=== PATIENT | male | born 1995 | race Two or more races ===

== ENCOUNTER 2021-03-16 16:25 | Inpatient (IN) | payer MEDICAID ==
[~2021-03-16] VITALS: Ht 167.6 cm; Wt 64.6 kg
[2021-03-16] MEDS ORDERED: HALOPERIDOL 5 MG TABLET PO PRN (19:45)
[2021-03-16] MEDS ORDERED: OLAN10TA3 PO (22:10)
[2021-03-16 22:47] LABS: COVID AG,FIA SOURCE NASOPHARYNGEAL
[2021-03-17 00:32] VITALS: BP 120/80
[2021-03-17 07:33] LABS: BASOPHILS % (AUTO) 0.7 % (0.0-2.0); EOSINOPHILS % (AUTO) 13.6 % (1.0-6.0); HEMATOCRIT 39.4 % (41-53); HEMOGLOBIN 13.7 g/dL (13.5-17.5); LYMPHOCYTES # (AUTO) 2.1 K/uL (1.0-4.8); LYMPHOCYTES % (AUTO) 46.6 % (22.0-44.0); MEAN CORPUSCULAR HEMOGLOBIN 32.9 pg (26.0-34.0); MEAN CORPUSCULAR HGB CONC 34.8 G/dL (31.0-37.0); MEAN CORPUSCULAR VOLUME 95 fL (80-100); MONOCYTES # (AUTO) 0.4 K/uL (0.1-1.0); NEUTROPHILS # (AUTO) 1.4 K/uL (1.8-7.7); NEUTROPHILS % (AUTO) 30.1 % (40.0-70.0); PLATELET COUNT (AUTO) 323 K/uL (150-450); RED BLOOD CELL COUNT(AUTO) 4.17 MIL/uL (4.50-5.90)
[2021-03-17] MEDS ORDERED: MAGNESIUM HYDROXIDE SUSPENSION 30 ML UDCUP PO PRN (07:45)
[2021-03-17] MEDS ORDERED: ONDANSETRON HCL 4 MG TABLET PO PRN (07:45)
[2021-03-17] MEDS ORDERED: ACETAMINOPHEN 325 MG TABLET PO PRN (07:45)
[2021-03-17] MEDS ORDERED: ALBUTEROL SULFATE HFA 90 MCG/PUFF 8 GM INHALER IH PRN (07:45)
[2021-03-17] MEDS ORDERED: CloNIDine HCL 0.1 MG TABLET PO PRN (07:45)
[2021-03-17] MEDS ORDERED: GuaiFENesin/D-METHORPHAN [SUGAR-FREE] 200-20MG/10 ML SYRUP UDCUP PO PRN (07:45)
[2021-03-17] MEDS ORDERED: MAG HYDROX/AL HYDROX/SIMETH ES 30 ML SUSPENSION UDCUP PO PRN (07:45)
[2021-03-17] MEDS ORDERED: DOCUSATE SODIUM 100 MG CAPSULE PO PRN (07:45)
[2021-03-17] MEDS ORDERED: LOPERAMIDE HCL 2 MG CAPSULE PO PRN (07:45)
[2021-03-17] MEDS ORDERED: PETROLATUM,WHITE 28 GM JELLY TP PRN (07:45)
[2021-03-17] MEDS ORDERED: IBUPROFEN 400 MG TABLET PO PRN (07:45)
[2021-03-17] MEDS ORDERED: NICOTINE 14 MG/24 HOUR PATCH TD PRN (07:45)
[2021-03-17 07:54] LABS: ALANINE AMINOTRANSFERASE 29 U/L (12-78); ALBUMIN 3.4 g/dL (3.4-5.0); ALKALINE PHOSPHATASE 66 U/L (46-116); ANION GAP 6 mmol/L (8-16); ASPARTATE AMINOTRANSFERASE 23 U/L (15-37); BILIRUBIN,TOTAL 0.3 mg/dL (0.1-1.0); CALCIUM, TOTAL 8.6 mg/dL (8.8-10.5); CARBON DIOXIDE 28 mmol/L (22-29); CHLORIDE 107 mmol/L (98-107); CHOL/HDL RATIO 2.2 (4.2-7.3); CHOLESTEROL 133 mg/dL (131-200); CREATININE 1.08 mg/dL (0.60-1.30); GLOMERULAR FILTR. RATE CALC > 60 mL/min (>60); GLUCOSE,RANDOM 92 mg/dL (70-110); HDL CHOLESTEROL 60 mg/dL (40-60); LDL CHOL (CALC.) 56 mg/dL (0-130); SODIUM SERUM 141 mmol/L (136-145); TOTAL PROTEIN, SERUM 6.1 g/dL (6.4-8.2); TRIGLYCERIDES 85 mg/dL (15-150); UREA NITROGEN, BLOOD 18 mg/dL (7-18)
[2021-03-17 08:20] VITALS: BP 123/85
[2021-03-17 08:32] LABS: FREE T4 (FREE THYROXINE) 1.11 ng/dL (0.76-1.46)
[2021-03-17] MEDS: OLANZapine 5 MG TABLET PO SCH ×2 (09:49→16:13)
[2021-03-17] MEDS: LORazepam 2 MG TABLET PO PRN (16:13)
[2021-03-17 16:15] VITALS: BP 135/71
[2021-03-18 00:37] VITALS: BP 126/69
[2021-03-18] MEDS: OLANZapine 5 MG TABLET PO SCH ×2 (08:06→16:49)
[2021-03-18 08:30] VITALS: BP 128/70
[2021-03-18 16:16] VITALS: BP 138/90
[2021-03-18] MEDS: LORazepam 2 MG TABLET PO PRN (16:50)
[2021-03-18] MEDS: ZOLPIDEM TARTRATE 10 MG TABLET PO PRN (21:07)
[2021-03-19 01:21] VITALS: BP 126/82
[2021-03-19] MEDS: OLANZapine 5 MG TABLET PO SCH ×2 (08:50→16:59)
[2021-03-19 08:53] VITALS: BP 115/66
[2021-03-19] MEDS: LORazepam 2 MG TABLET PO PRN ×2 (11:16→16:59)
[2021-03-19 16:10] VITALS: BP 111/68
[2021-03-19] MEDS: ZOLPIDEM TARTRATE 10 MG TABLET PO PRN (20:59)
[2021-03-20 01:26] VITALS: BP 122/74
[2021-03-20] MEDS: LORazepam 2 MG TABLET PO PRN ×2 (08:14→16:22)
[2021-03-20] MEDS: OLANZapine 5 MG TABLET PO SCH ×2 (08:14→16:22)
[2021-03-20 09:01] VITALS: BP 117/65
[2021-03-20 16:10] VITALS: BP 112/69
[2021-03-20] MEDS: ZOLPIDEM TARTRATE 10 MG TABLET PO PRN (20:30)
[2021-03-21 04:00] VITALS: BP 111/77
[2021-03-21] MEDS: OLANZapine 5 MG TABLET PO SCH ×2 (08:24→16:06)
[2021-03-21 08:48] VITALS: BP 117/65
[2021-03-21 16:05] VITALS: BP 118/61
[2021-03-21] MEDS: ZOLPIDEM TARTRATE 10 MG TABLET PO PRN (20:36)
[2021-03-21] MEDS: LORazepam 2 MG TABLET PO PRN (20:36)
[2021-03-22 05:27] VITALS: BP 105/60
[2021-03-22 08:08] VITALS: BP 113/57
[2021-03-22 08:27] LABS: APPEARANCE,URINE CLEAR (CLEAR); BILIRUBIN,URINE NEGATIVE (NEGATIVE); GLUCOSE, URINE (UA) NEGATIVE (NEGATIVE); KETONES,URINE NEGATIVE (NEGATIVE); LEUKOCYTE ESTERASE ,URINE NEGATIVE (NEGATIVE); NITRATE,URINE NEGATIVE (NEGATIVE); OCCULT BLOOD,URINE NEGATIVE (NEGATIVE); PROTEIN,URINE NEGATIVE (NEGATIVE); UROBILINOGEN,URINE 0.2 mg/dL (<=1.0)
[2021-03-22 08:32] LABS: AMPHET/METH SCREEN,URINE NEGATIVE (NEGATIVE); BARBITURATE SCREEN, URINE NEGATIVE (NEGATIVE); BENZODIAZEPINES SCREEN,URINE NEGATIVE (NEGATIVE); CANNABINOID SCREEN,URINE NEGATIVE (NEGATIVE); COCAINE SCREEN,URINE NEGATIVE (NEGATIVE); METHADONE SCREEN, URINE NEGATIVE (NEGATIVE); OPIATE SCREEN,URINE NEGATIVE (NEGATIVE)
[2021-03-22 08:38] LABS: PHENCYCLIDINE SCREEN,URINE NEGATIVE (NEGATIVE)
[2021-03-22] MEDS: OLANZapine 5 MG TABLET PO SCH (09:04)
[2021-03-22] MEDS: LORazepam 2 MG TABLET PO PRN ×2 (09:08→16:49)
[2021-03-22] MEDS: ARIPiprazole 5 MG TABLET PO SCH ×2 (12:54→16:48)
[2021-03-22 17:51] VITALS: BP 113/60
[2021-03-22] MEDS: ZOLPIDEM TARTRATE 10 MG TABLET PO PRN (20:57)
[2021-03-23 03:29] VITALS: BP 125/65
[2021-03-23 08:09] VITALS: BP_SYST 105; BP_SYST 111; BP_DIAS 62; BP_DIAS 77
[2021-03-23] MEDS: LORazepam 2 MG TABLET PO PRN ×2 (08:33→16:33)
[2021-03-23] MEDS: ARIPiprazole 5 MG TABLET PO SCH ×2 (08:33→16:33)
[2021-03-23] MEDS ORDERED: ARIPiprazole ER SUSPENSION 400 MG PRE-FILLED DUAL CHAMBER SYRINGE IM SCH (09:00)
[2021-03-23 16:16] VITALS: BP 113/63
[2021-03-23] MEDS: ZOLPIDEM TARTRATE 10 MG TABLET PO PRN (21:34)
[2021-03-24 06:18] VITALS: BP 114/69
[2021-03-24 08:03] VITALS: BP 115/75
[2021-03-24] MEDS: ARIPiprazole 5 MG TABLET PO SCH ×2 (08:24→16:54)
[2021-03-24] MEDS: LORazepam 2 MG TABLET PO PRN (13:43)
[2021-03-24 16:07] VITALS: BP 118/69
[2021-03-24] MEDS: ZOLPIDEM TARTRATE 10 MG TABLET PO PRN (20:27)
[2021-03-25 04:07] VITALS: BP 121/68
[2021-03-25] MEDS: ARIPiprazole 5 MG TABLET PO SCH ×2 (08:28→16:48)
[2021-03-25 09:10] VITALS: BP 118/60
[2021-03-25 16:16] VITALS: BP 127/66
[2021-03-25] MEDS: LORazepam 2 MG TABLET PO PRN (17:24)
[2021-03-26 03:16] VITALS: BP 121/64
[2021-03-26 08:13] VITALS: BP 119/75
[2021-03-26] MEDS: ARIPiprazole 5 MG TABLET PO SCH ×2 (08:55→16:51)
[2021-03-26 16:25] VITALS: BP 125/68
[2021-03-26] MEDS: LORazepam 2 MG TABLET PO PRN (16:51)
[2021-03-27 03:18] VITALS: BP 120/72
[2021-03-27] MEDS: ARIPiprazole 5 MG TABLET PO SCH ×2 (08:50→16:20)
[2021-03-27 10:26] VITALS: BP 113/65
[2021-03-27] MEDS: LORazepam 2 MG TABLET PO PRN (16:20)
[2021-03-27 16:35] VITALS: BP 129/73
[2021-03-27] MEDS: ZOLPIDEM TARTRATE 10 MG TABLET PO PRN (21:29)
[2021-03-28 05:41] VITALS: BP 113/72
[2021-03-28 08:04] VITALS: BP 118/74
[2021-03-28] MEDS: ARIPiprazole 5 MG TABLET PO SCH ×2 (08:43→16:19)
[2021-03-28 16:19] VITALS: BP 134/64
[2021-03-28] MEDS: LORazepam 2 MG TABLET PO PRN (16:20)
[2021-03-29 05:13] VITALS: BP 111/70
[2021-03-29 08:07] VITALS: BP 116/70
[2021-03-29] MEDS: ARIPiprazole 5 MG TABLET PO SCH (08:48)
[2021-03-29] MEDS ORDERED: ARIP400S3 IM (08:57)
== END 2021-03-29 09:45 | disposition home or self-care (01) | DRG 753 ==
LOC: B3A 23:27
PROVIDERS: ADMIT Psychiatry & Neurology Child & Adolescent Psychiatry; ATTEND Psychiatry & Neurology Child & Adolescent Psychiatry
DX: F31.4 Bipolar disorder, current episode depressed, severe, without psychotic features (principal); Z91.14 Patient's other noncompliance with medication regimen; D64.9 Anemia, unspecified; F12.90 Cannabis use, unspecified, uncomplicated; F10.10 Alcohol abuse, uncomplicated; F15.90 Other stimulant use, unspecified, uncomplicated; F41.9 Anxiety disorder, unspecified; Z20.822 Contact with and (suspected) exposure to COVID-19; R00.1 Bradycardia, unspecified
CPT/HCPCS: 80053; 80061; 80307; 81003; 84439; 84443; 85025; 87426; J0401

== ENCOUNTER 2021-04-06 16:11 | Inpatient (IN) | payer MEDICAID ==
[~2021-04-06] VITALS: Ht 167.6 cm; Wt 67.6 kg
[~2021-04-06 16:11] MED LIST: ARIP400S3 IM
[2021-04-06 18:07] LABS: COVID AG,FIA SOURCE NASAL SWAB
[2021-04-06] MEDS: LORazepam 2 MG TABLET PO PRN (19:34)
[2021-04-06] MEDS: HALOPERIDOL 5 MG TABLET PO PRN (19:34)
[2021-04-06 19:46] VITALS: BP 141/86
[2021-04-06] MEDS: ZOLPIDEM TARTRATE 10 MG TABLET PO PRN (20:43)
[2021-04-07 05:23] VITALS: BP 139/62
[2021-04-07 07:20] LABS: HEMATOCRIT 42.9 % (41-53); HEMOGLOBIN 14.9 g/dL (13.5-17.5); LYMPHOCYTES # (AUTO) 1.6 K/uL (1.0-4.8); LYMPHOCYTES % (AUTO) 42.1 % (22.0-44.0); MEAN CORPUSCULAR HGB CONC 34.6 G/dL (31.0-37.0); MEAN CORPUSCULAR VOLUME 95 fL (80-100); MONOCYTES # (AUTO) 0.3 K/uL (0.1-1.0); MONOCYTES % (AUTO) 8.2 % (2.0-9.0); NEUTROPHILS # (AUTO) 1.4 K/uL (1.8-7.7); NEUTROPHILS % (AUTO) 36.7 % (40.0-70.0); PLATELET COUNT (AUTO) 316 K/uL (150-450); RED BLOOD CELL COUNT(AUTO) 4.51 MIL/uL (4.50-5.90); RED CELL DISTRIBUTION WIDTH 12.9 % (11.5-14.5)
[2021-04-07 07:32] LABS: HEMOGLOBIN A1C 5.1 % (3.8-5.6)
[2021-04-07 07:44] LABS: ALANINE AMINOTRANSFERASE 30 U/L (12-78); ALBUMIN 3.7 g/dL (3.4-5.0); ALKALINE PHOSPHATASE 73 U/L (46-116); ANION GAP 7 mmol/L (8-16); ASPARTATE AMINOTRANSFERASE 29 U/L (15-37); BILIRUBIN,TOTAL 0.8 mg/dL (0.1-1.0); CALCIUM, TOTAL 8.6 mg/dL (8.8-10.5); CARBON DIOXIDE 28 mmol/L (22-29); CHLORIDE 105 mmol/L (98-107); CHOL/HDL RATIO 2.3 (4.2-7.3); CHOLESTEROL 152 mg/dL (131-200); CREATININE 1.02 mg/dL (0.60-1.30); FREE T4 (FREE THYROXINE) 1.04 ng/dL (0.76-1.46); GLOMERULAR FILTR. RATE CALC > 60 mL/min (>60); GLUCOSE,RANDOM 90 mg/dL (70-110); HDL CHOLESTEROL 65 mg/dL (40-60); LDL CHOL (CALC.) 64 mg/dL (0-130); SODIUM SERUM 140 mmol/L (136-145); TOTAL PROTEIN, SERUM 6.3 g/dL (6.4-8.2); TRIGLYCERIDES 117 mg/dL (15-150); UREA NITROGEN, BLOOD 9 mg/dL (7-18)
[2021-04-07 08:27] VITALS: BP 124/68
[2021-04-07] MEDS: NICOTINE 7 MG/24 HOUR PATCH TD SCH (08:32)
[2021-04-07] MEDS: LORazepam 2 MG TABLET PO PRN ×2 (08:36→16:27)
[2021-04-07] MEDS ORDERED: ACETAMINOPHEN 325 MG TABLET PO PRN (09:30)
[2021-04-07] MEDS ORDERED: PETROLATUM,WHITE 28 GM JELLY TP PRN (09:30)
[2021-04-07] MEDS ORDERED: LOPERAMIDE HCL 2 MG CAPSULE PO PRN (09:30)
[2021-04-07] MEDS ORDERED: DOCUSATE SODIUM 100 MG CAPSULE PO PRN (09:30)
[2021-04-07] MEDS ORDERED: ONDANSETRON HCL 4 MG TABLET PO PRN (09:30)
[2021-04-07] MEDS ORDERED: MAGNESIUM HYDROXIDE SUSPENSION 30 ML UDCUP PO PRN (09:30)
[2021-04-07] MEDS ORDERED: GuaiFENesin/D-METHORPHAN [SUGAR-FREE] 200-20MG/10 ML SYRUP UDCUP PO PRN (09:30)
[2021-04-07] MEDS ORDERED: CloNIDine HCL 0.1 MG TABLET PO PRN (09:30)
[2021-04-07] MEDS ORDERED: MAG HYDROX/AL HYDROX/SIMETH ES 30 ML SUSPENSION UDCUP PO PRN (09:30)
[2021-04-07] MEDS ORDERED: ALBUTEROL SULFATE HFA 90 MCG/PUFF 8 GM INHALER IH PRN (09:30)
[2021-04-07] MEDS ORDERED: IBUPROFEN 400 MG TABLET PO PRN (09:30)
[2021-04-07] MEDS ORDERED: NICOTINE 14 MG/24 HOUR PATCH TD PRN (09:30)
[2021-04-07 16:14] VITALS: BP 134/84
[2021-04-07] MEDS: ARIPiprazole 5 MG TABLET PO SCH (16:27)
[2021-04-07] MEDS: OLANZapine 5 MG TABLET PO SCH (16:27)
[2021-04-08 05:19] VITALS: BP 128/68
[2021-04-08 08:21] VITALS: BP 128/70
[2021-04-08] MEDS: ARIPiprazole 5 MG TABLET PO SCH (08:52)
[2021-04-08] MEDS: OLANZapine 5 MG TABLET PO SCH (08:52)
[2021-04-08] MEDS: NICOTINE 7 MG/24 HOUR PATCH TD SCH (08:53)
[2021-04-08] MEDS: LORazepam 2 MG TABLET PO PRN ×2 (09:25→15:55)
[2021-04-08] MEDS: DIVALPROEX SODIUM 500 MG DR TABLET PO SCH (16:00)
[2021-04-08] MEDS: RisperiDONE 2 MG TABLET PO SCH (16:00)
[2021-04-08 16:18] VITALS: BP 119/70
[2021-04-08] MEDS: ZOLPIDEM TARTRATE 10 MG TABLET PO PRN (21:30)
[2021-04-09 05:50] VITALS: BP 120/72
[2021-04-09 08:17] VITALS: BP 111/64
[2021-04-09] MEDS: DIVALPROEX SODIUM 500 MG DR TABLET PO SCH ×2 (08:33→16:12)
[2021-04-09] MEDS: RisperiDONE 2 MG TABLET PO SCH ×2 (08:33→16:12)
[2021-04-09] MEDS: NICOTINE 7 MG/24 HOUR PATCH TD SCH (08:33)
[2021-04-09] MEDS: LORazepam 2 MG TABLET PO PRN ×2 (08:33→16:13)
[2021-04-09 16:08] VITALS: BP 107/72
[2021-04-10 04:38] VITALS: BP 122/71
[2021-04-10] MEDS: NICOTINE 7 MG/24 HOUR PATCH TD SCH (08:01)
[2021-04-10] MEDS: DIVALPROEX SODIUM 500 MG DR TABLET PO SCH ×2 (08:02→17:28)
[2021-04-10] MEDS: LORazepam 2 MG TABLET PO PRN ×3 (08:02→22:23)
[2021-04-10] MEDS: RisperiDONE 2 MG TABLET PO SCH ×2 (08:02→17:23)
[2021-04-10 08:10] VITALS: BP 116/60
[2021-04-10 16:09] VITALS: BP 143/81
[2021-04-10] MEDS: ZOLPIDEM TARTRATE 10 MG TABLET PO PRN (22:23)
[2021-04-11 05:55] VITALS: BP 124/68
[2021-04-11] MEDS: LORazepam 2 MG TABLET PO PRN ×2 (08:14→16:10)
[2021-04-11] MEDS: DIVALPROEX SODIUM 500 MG DR TABLET PO SCH ×2 (08:14→16:10)
[2021-04-11] MEDS: RisperiDONE 2 MG TABLET PO SCH ×2 (08:14→16:10)
[2021-04-11] MEDS: NICOTINE 7 MG/24 HOUR PATCH TD SCH (08:14)
[2021-04-11 08:23] VITALS: BP 132/68
[2021-04-11 16:07] VITALS: BP 121/67
[2021-04-11] MEDS: HALOPERIDOL 5 MG TABLET PO PRN (16:10)
[2021-04-11] MEDS: ZOLPIDEM TARTRATE 10 MG TABLET PO PRN (20:51)
[2021-04-12 07:09] VITALS: BP 135/74
[2021-04-12 08:20] VITALS: BP 114/69
[2021-04-12 09:06] LABS: APPEARANCE,URINE CLEAR (CLEAR); BILIRUBIN,URINE NEGATIVE (NEGATIVE); GLUCOSE, URINE (UA) NEGATIVE (NEGATIVE); KETONES,URINE NEGATIVE (NEGATIVE); LEUKOCYTE ESTERASE ,URINE NEGATIVE (NEGATIVE); NITRATE,URINE NEGATIVE (NEGATIVE); OCCULT BLOOD,URINE NEGATIVE (NEGATIVE); PH,URINE 7.5 (5.0-8.0); PROTEIN,URINE NEGATIVE (NEGATIVE); UROBILINOGEN,URINE 0.2 mg/dL (<=1.0)
[2021-04-12 09:11] LABS: AMPHET/METH SCREEN,URINE NEGATIVE (NEGATIVE); BARBITURATE SCREEN, URINE NEGATIVE (NEGATIVE); BENZODIAZEPINES SCREEN,URINE NEGATIVE (NEGATIVE); CANNABINOID SCREEN,URINE NEGATIVE (NEGATIVE); COCAINE SCREEN,URINE NEGATIVE (NEGATIVE); METHADONE SCREEN, URINE NEGATIVE (NEGATIVE); OPIATE SCREEN,URINE NEGATIVE (NEGATIVE); PHENCYCLIDINE SCREEN,URINE NEGATIVE (NEGATIVE)
[2021-04-12] MEDS: DIVALPROEX SODIUM 500 MG DR TABLET PO SCH ×2 (09:19→17:04)
[2021-04-12] MEDS: NICOTINE 7 MG/24 HOUR PATCH TD SCH (09:19)
[2021-04-12] MEDS: RisperiDONE 2 MG TABLET PO SCH ×2 (09:19→17:04)
[2021-04-12] MEDS: LORazepam 2 MG TABLET PO PRN ×2 (09:19→17:04)
[2021-04-12 16:07] VITALS: BP 119/67
[2021-04-12] MEDS: ZOLPIDEM TARTRATE 10 MG TABLET PO PRN (20:55)
[2021-04-13 06:17] VITALS: BP 137/90
[2021-04-13] MEDS: RisperiDONE 2 MG TABLET PO SCH ×2 (08:45→16:38)
[2021-04-13] MEDS: DIVALPROEX SODIUM 500 MG DR TABLET PO SCH ×2 (08:45→16:38)
[2021-04-13] MEDS: NICOTINE 7 MG/24 HOUR PATCH TD SCH (08:45)
[2021-04-13] MEDS: LORazepam 2 MG TABLET PO PRN ×2 (08:45→16:38)
[2021-04-13 08:53] VITALS: BP 156/79
[2021-04-13 16:10] VITALS: BP 131/86
[2021-04-13] MEDS: HALOPERIDOL 5 MG TABLET PO PRN (16:38)
[2021-04-13] MEDS: ZOLPIDEM TARTRATE 10 MG TABLET PO PRN (20:38)
[2021-04-14 01:53] VITALS: BP 125/78
[2021-04-14 07:49] LABS: BASOPHILS % (AUTO) 0.6 % (0.0-2.0); EOSINOPHILS % (AUTO) 2.5 % (1.0-6.0); HEMATOCRIT 49.3 % (41-53); LYMPHOCYTES # (AUTO) 1.8 K/uL (1.0-4.8); LYMPHOCYTES % (AUTO) 36.8 % (22.0-44.0); MEAN CORPUSCULAR HGB CONC 34.5 G/dL (31.0-37.0); MEAN CORPUSCULAR VOLUME 96 fL (80-100); MONOCYTES # (AUTO) 0.4 K/uL (0.1-1.0); MONOCYTES % (AUTO) 9.2 % (2.0-9.0); NEUTROPHILS # (AUTO) 2.4 K/uL (1.8-7.7); NEUTROPHILS % (AUTO) 50.9 % (40.0-70.0); PLATELET COUNT (AUTO) 357 K/uL (150-450); RED BLOOD CELL COUNT(AUTO) 5.16 MIL/uL (4.50-5.90); RED CELL DISTRIBUTION WIDTH 12.9 % (11.5-14.5)
[2021-04-14 08:34] VITALS: BP 116/74
[2021-04-14] MEDS: NICOTINE 7 MG/24 HOUR PATCH TD SCH (08:42)
[2021-04-14] MEDS: DIVALPROEX SODIUM 500 MG DR TABLET PO SCH ×2 (08:42→17:17)
[2021-04-14] MEDS: RisperiDONE 2 MG TABLET PO SCH ×2 (08:42→17:17)
[2021-04-14 16:14] VITALS: BP 129/76
[2021-04-15 06:01] VITALS: BP 126/63
[2021-04-15 08:48] VITALS: BP 118/62
[2021-04-15] MEDS: LORazepam 2 MG TABLET PO PRN ×2 (09:32→16:40)
[2021-04-15] MEDS: NICOTINE 7 MG/24 HOUR PATCH TD SCH (09:32)
[2021-04-15] MEDS: DIVALPROEX SODIUM 500 MG DR TABLET PO SCH ×2 (09:32→16:39)
[2021-04-15] MEDS: HALOPERIDOL 5 MG TABLET PO PRN (09:32)
[2021-04-15] MEDS: RisperiDONE 2 MG TABLET PO SCH ×2 (09:32→16:39)
[2021-04-15 16:05] VITALS: BP 107/72
[2021-04-16 05:17] VITALS: BP 112/73
[2021-04-16 08:29] VITALS: BP 109/62
[2021-04-16] MEDS: RisperiDONE 2 MG TABLET PO SCH ×2 (08:50→16:57)
[2021-04-16] MEDS: DIVALPROEX SODIUM 500 MG DR TABLET PO SCH ×2 (08:50→16:57)
[2021-04-16] MEDS: NICOTINE 7 MG/24 HOUR PATCH TD SCH (08:50)
[2021-04-16 16:11] VITALS: BP 116/74
[2021-04-16] MEDS: HALOPERIDOL 5 MG TABLET PO PRN (16:57)
[2021-04-16] MEDS: LORazepam 2 MG TABLET PO PRN (16:57)
[2021-04-17 04:42] VITALS: BP 110/75
[2021-04-17 08:20] VITALS: BP 117/63
[2021-04-17] MEDS: DIVALPROEX SODIUM 500 MG DR TABLET PO SCH ×2 (09:04→16:57)
[2021-04-17] MEDS: RisperiDONE 2 MG TABLET PO SCH ×2 (09:04→16:57)
[2021-04-17] MEDS: NICOTINE 7 MG/24 HOUR PATCH TD SCH (09:04)
[2021-04-17 16:25] VITALS: BP 110/75
[2021-04-17] MEDS: HALOPERIDOL 5 MG TABLET PO PRN (16:57)
[2021-04-18 00:15] VITALS: BP 106/64
[2021-04-18 08:25] VITALS: BP 106/63
[2021-04-18] MEDS: DIVALPROEX SODIUM 500 MG DR TABLET PO SCH ×2 (08:29→16:48)
[2021-04-18] MEDS: NICOTINE 7 MG/24 HOUR PATCH TD SCH (08:29)
[2021-04-18] MEDS: RisperiDONE 2 MG TABLET PO SCH ×2 (08:29→16:48)
[2021-04-18 16:13] VITALS: BP 125/78
[2021-04-19 06:53] VITALS: BP 111/70
[2021-04-19] MEDS: NICOTINE 7 MG/24 HOUR PATCH TD SCH (08:32)
[2021-04-19] MEDS: RisperiDONE 2 MG TABLET PO SCH ×2 (08:32→16:53)
[2021-04-19] MEDS: DIVALPROEX SODIUM 500 MG DR TABLET PO SCH ×2 (08:32→16:52)
[2021-04-19 09:15] VITALS: BP 107/66
[2021-04-19 16:10] VITALS: BP 109/64
[2021-04-19] MEDS: HALOPERIDOL 5 MG TABLET PO PRN (16:53)
[2021-04-20 00:48] VITALS: BP 106/62
[2021-04-20 08:31] VITALS: BP 114/74
[2021-04-20] MEDS: NICOTINE 7 MG/24 HOUR PATCH TD SCH (08:53)
[2021-04-20] MEDS: DIVALPROEX SODIUM 500 MG DR TABLET PO SCH ×2 (08:53→16:41)
[2021-04-20] MEDS: RisperiDONE 2 MG TABLET PO SCH ×2 (08:53→16:41)
[2021-04-20] MEDS: HALOPERIDOL 5 MG TABLET PO PRN ×2 (09:00→16:41)
[2021-04-20 16:08] VITALS: BP 112/61
[2021-04-21 00:22] VITALS: BP 110/73
[2021-04-21 08:38] VITALS: BP 119/68
[2021-04-21] MEDS: RisperiDONE 2 MG TABLET PO SCH ×2 (08:39→16:46)
[2021-04-21] MEDS: DIVALPROEX SODIUM 500 MG DR TABLET PO SCH ×2 (08:39→16:46)
[2021-04-21] MEDS: NICOTINE 7 MG/24 HOUR PATCH TD SCH (08:40)
[2021-04-21 16:22] VITALS: BP 121/68
[2021-04-21] MEDS: HALOPERIDOL 5 MG TABLET PO PRN (16:46)
[2021-04-22 05:57] VITALS: BP 118/66
[2021-04-22 08:38] VITALS: BP 103/59
[2021-04-22] MEDS: RisperiDONE 2 MG TABLET PO SCH ×2 (09:17→18:00)
[2021-04-22] MEDS: NICOTINE 7 MG/24 HOUR PATCH TD SCH (09:17)
[2021-04-22] MEDS: DIVALPROEX SODIUM 500 MG DR TABLET PO SCH ×2 (09:17→18:00)
[2021-04-22 16:07] VITALS: BP 101/67
[2021-04-23 06:01] VITALS: BP 110/68
[2021-04-23 08:35] VITALS: BP 104/58
[2021-04-23] MEDS: DIVALPROEX SODIUM 500 MG DR TABLET PO SCH (08:39)
[2021-04-23] MEDS: NICOTINE 7 MG/24 HOUR PATCH TD SCH (08:39)
[2021-04-23] MEDS: RisperiDONE 2 MG TABLET PO SCH (08:39)
[2021-04-23] MEDS ORDERED: RISP2TAB76 PO (09:46)
[2021-04-23] MEDS ORDERED: DIVA-112 PO (09:46)
== END 2021-04-23 13:52 | disposition home or self-care (01) | DRG 750 ==
LOC: B3A 18:07
PROVIDERS: ADMIT Psychiatry & Neurology Child & Adolescent Psychiatry; ATTEND Psychiatry & Neurology Child & Adolescent Psychiatry
DX: F25.0 Schizoaffective disorder, bipolar type (principal); Z59.0 Homelessness; D72.819 Decreased white blood cell count, unspecified; Z20.822 Contact with and (suspected) exposure to COVID-19; F10.11 Alcohol abuse, in remission; F19.10 Other psychoactive substance abuse, uncomplicated; Z79.899 Other long term (current) drug therapy
CPT/HCPCS: 80053; 80061; 80164; 80307; 81003; 83036; 84439; 84443; 85025; 87081

== ENCOUNTER 2022-06-02 19:43 | Emergency (ER) | payer MEDICAID, OTHER ==
[~2022-06-02] VITALS: Ht 165.1 cm; Wt 65.9 kg
[~2022-06-02 19:43] MED LIST changes: -ARIP400S3 IM; +DIVA-112 PO; +RISP2TAB76 PO
[2022-06-02] MEDS ORDERED: LORazepam 1 MG TABLET PO ONE (20:45)
[2022-06-02] MEDS ORDERED: OLANZapine 5 MG TABLET PO ONE (20:45)
[2022-06-02] MEDS ORDERED: TRAZ-257 PO (20:48)
[2022-06-02] MEDS ORDERED: OLAN5TAB52 PO (20:48)
[2022-06-02 20:59] VITALS: BP 129/74
== END 2022-06-02 21:19 | disposition home or self-care (01) ==
LOC: EMS 19:52
DX: F25.9 Schizoaffective disorder, unspecified (principal); G47.00 Insomnia, unspecified; F12.90 Cannabis use, unspecified, uncomplicated; F17.210 Nicotine dependence, cigarettes, uncomplicated
CPT/HCPCS: 99283